=== PATIENT | female | born 1935 | race Caucasian/White ===

== ENCOUNTER 2019-05-24 17:47 | Emergency (ER) | payer OTHER ==
[~2019-05-24] VITALS: Ht 157.5 cm; Wt 46.3 kg
[2019-05-24] MEDS ORDERED: DILTIAZEM ER60 M1 PO (18:06)
[2019-05-24] MEDS ORDERED: ACCUNEB SO1.25 MG/1 INH (18:07)
[2019-05-24] MEDS ORDERED: VENTOLIN HFA 1818 GM INH (18:07)
[2019-05-24 19:01] LABS: ABSOLUTE BASOPHILS 0.1 thou/uL (0.0-0.2); ABSOLUTE EOSINOPHILS 0.3 thou/uL (0.0-0.7); ABSOLUTE LYMPHOCYTES 1.1 thou/uL (0.8-5.3); ABSOLUTE MONOCYTES 0.8 thou/uL (0.0-1.2); ABSOLUTE NEUTROPHILS 4.6 thou/uL (1.6-8.1); EOSINOPHILS 4.7 %; HEMATOCRIT 41.4 % (37.0-47.0); HEMOGLOBIN 13.4 gm/dL (12.0-15.0); LYMPHOCYTES 16.1 %; MCH 29.2 pg (26.0-34.0); MCHC 32.4 g/dL (28.0-37.0); MCV 90.4 fL (80.0-100.0); MONOCYTES 11.7 %; MPV 8.1 fl. (7.2-11.1); NUCLEATED RBCS 0 /100WBC; PLATELET COUNT* 267 thou/uL (150-400); POLYS 66.5 %; RBC 4.58 mil/uL (4.20-5.00); RDW-CV 14.7 % (10.5-14.5); WBC 6.9 thou/uL (4.0-11.0)
[2019-05-24 19:11] LABS: CALCIUM 8.8 mg/dL (8.5-10.1); CREATININE 0.6 mg/dL (0.6-1.3); POTASSIUM 4.3 mmol/L (3.5-5.1)
[2019-05-24 19:15] LABS: ALBUMIN 3.4 g/dL (3.4-5.0); TOTAL BILIRUBIN 0.2 mg/dL (<0.1-1.0); TOTAL PROTEIN 6.9 g/dL (6.4-8.2)
[2019-05-24 19:52] LABS: URINE BILIRUBIN NEGATIVE (Negative); URINE BLOOD TRACE (Negative); URINE CLARITY SL CLOUDY; URINE COLOR YELLOW; URINE GLUCOSE-RANDOM NEGATIVE (Negative); URINE KETONES NEGATIVE (Negative); URINE LEUKOCYTES-REFLEX NEGATIVE (Negative); URINE NITRITE-REFLEX NEGATIVE (Negative); URINE PROTEIN NEGATIVE (Negative); URINE SPECIFIC GRAVITY 1.025 (1.005-1.030); URINE UROBILINOGEN 0.2 E.U./dl (0.2-1.0)
[2019-05-24 19:59] LABS: SQUAMOUS 0-3 Few /LPF (0-3); WBC CLUMPS Few (None Seen)
[2019-05-24 20:04] LABS: URINE WBC-REFLEX >25 Many /HPF (0-5)
[2019-05-24 20:05] LABS: BACTERIA-REFLEX >30 Many /HPF (None Seen); CASTS None Seen /LPF (None Seen); CRYSTALS None Seen /LPF (None Seen); MUCUS None Seen strn/LPF (None Seen); URINE RBC 0-2 Rare /HPF (0-2)
[2019-05-24] MEDS ORDERED: MIRALAX17 GM PO ×2 (20:26→20:43)
[2019-05-24] MEDS ORDERED: KEFLEX500 M1 PO (20:26)
[2019-05-24] MEDS ORDERED: MACROBID 100 M100 M2 PO (20:43)
[2019-05-24 20:54] VITALS: BP 135/72
== END 2019-05-24 20:54 | disposition home or self-care (01) ==
LOC: M.ERS 17:47
PROVIDERS: Nurse Practitioner Family
DX: N39.0 Urinary tract infection, site not specified (principal); K59.00 Constipation, unspecified; I10 Essential (primary) hypertension; J45.909 Unspecified asthma, uncomplicated; Z88.2 Allergy status to sulfonamides; Z91.041 Radiographic dye allergy status; Z88.1 Allergy status to other antibiotic agents; Z91.09 Other allergy status, other than to drugs and biological substances; Z91.048 Other nonmedicinal substance allergy status

== ENCOUNTER 2019-05-26 11:39 | Emergency (ER) | payer OTHER ==
[~2019-05-26] VITALS: Ht 157.5 cm; Wt 45.4 kg
[~2019-05-26 11:39] MED LIST: ACCUNEB SO1.25 MG/1 INH; DILTIAZEM ER60 M1 PO; KEFLEX500 M1 PO; MACROBID 100 M100 M2 PO; MIRALAX17 GM PO; VENTOLIN HFA 1818 GM INH
[2019-05-26 12:15] LABS: ABSOLUTE BASOPHILS 0.1 thou/uL (0.0-0.2); ABSOLUTE EOSINOPHILS 0.4 thou/uL (0.0-0.7); ABSOLUTE LYMPHOCYTES 0.9 thou/uL (0.8-5.3); ABSOLUTE MONOCYTES 0.7 thou/uL (0.0-1.2); ABSOLUTE NEUTROPHILS 4.3 thou/uL (1.6-8.1); BASOPHILS 1.1 %; EOSINOPHILS 6.8 %; HEMATOCRIT 42.1 % (37.0-47.0); HEMOGLOBIN 13.6 gm/dL (12.0-15.0); LYMPHOCYTES 13.8 %; MCH 29.1 pg (26.0-34.0); MCHC 32.4 g/dL (28.0-37.0); NUCLEATED RBCS 0 /100WBC; PLATELET COUNT* 259 thou/uL (150-400); POLYS 67.3 %; RBC 4.68 mil/uL (4.20-5.00); RDW-CV 14.4 % (10.5-14.5); WBC 6.3 thou/uL (4.0-11.0)
[2019-05-26 12:23] LABS: ANION GAP 5 mmol/L (7-16); BUN 21 mg/dL (7-18); CALCIUM 8.9 mg/dL (8.5-10.1); CHLORIDE 105 mmol/L (98-107); CO2 32 mmol/L (21-32); CREATININE 0.7 mg/dL (0.6-1.3); GLUCOSE 101 mg/dL (70-99); POTASSIUM 4.2 mmol/L (3.5-5.1); SODIUM 142 mmol/L (136-145)
[2019-05-26 12:25] LABS: PROTIME 10.5 Seconds (9.20-11.50)
[2019-05-26 12:36] LABS: ALBUMIN 3.4 g/dL (3.4-5.0); ALKALINE PHOSPHATASE 97 U/L (46-116); SGOT 21 U/L (15-37); SGPT 22 U/L (30-65); TOTAL BILIRUBIN 0.6 mg/dL (<0.1-1.0); TOTAL PROTEIN 6.8 g/dL (6.4-8.2); TROPONIN-I LEVEL <0.06 ng/mL (<0.06)
--- NOTE | 2019-05-26 15:07 | EKG ---
[place] [address] ELECTROCARDIOGRAM REPORT Name: TIMA BOWMAN Room: [facility]#: [id number] Admission: 05/26/19 Attend Phys: Discharge: Date of : 35 Report #: [id number] THIS REPORT FOR: //name// [facility] ED Test Date: 2019-05-26 Test Time: 12:18:56 Pat Name: TIMA BOWMAN Department: Room: Gender: F Front Office Attendant: : 1935 Requested By: Nilson Christy Order Number: [id number] MD: Jared Obregon Measurements Intervals [place] Rate: 64 P: 70 MS: 162 QRS: -10 QRSD: 90 T: 62 QT: 417 QTc: 431 Interpretive Statements Sinus rhythm No previous ECG available for comparison Electronically Signed On 05-26-2019 15:07:26 CDT by Jared Obregon [email or web address] <ELECTRONICALLY SIGNED> By: Jared Obregon MD, [facility] 05/26/19 1507 1218 1218 Jared Obregon MD, FACC /EPI
[2019-05-26 18:10] VITALS: BP 143/89
== END 2019-05-26 18:10 | disposition short-term general hospital (02) ==
LOC: M.ERS 11:39
PROVIDERS: Emergency Medicine
DX: I63.9 Cerebral infarction, unspecified (principal); I67.1 Cerebral aneurysm, nonruptured; J45.909 Unspecified asthma, uncomplicated; I10 Essential (primary) hypertension; Z88.0 Allergy status to penicillin; Z88.2 Allergy status to sulfonamides; Z88.1 Allergy status to other antibiotic agents; Z91.041 Radiographic dye allergy status; Z88.8 Allergy status to other drugs, medicaments and biological substances; Z88.4 Allergy status to anesthetic agent

== ENCOUNTER 2019-07-22 16:53 | Emergency (ER) | payer MEDICARE, MEDICAID ==
[~2019-07-22] VITALS: Ht 157.5 cm; Wt 45.4 kg
[2019-07-22 18:31] VITALS: BP 136/42
== END 2019-07-22 18:31 ==
LOC: M.ERS 16:53
DX: M79.642 Pain in left hand (principal); M79.672 Pain in left foot; J45.909 Unspecified asthma, uncomplicated; I10 Essential (primary) hypertension; Z88.2 Allergy status to sulfonamides; Z88.1 Allergy status to other antibiotic agents; Z91.041 Radiographic dye allergy status; Z88.8 Allergy status to other drugs, medicaments and biological substances; W18.39XA Other fall on same level, initial encounter; Y93.89 Activity, other specified; Y92.89 Other specified places as the place of occurrence of the external cause; Y99.8 Other external cause status